=== PATIENT | male | born 1995 | race Asian ===

== ENCOUNTER 2018-01-05 13:16 | Inpatient (IN) | payer OTHER ==
[~2018-01-05] VITALS: Ht 167.6 cm; Wt 46.5 kg
[2018-01-05 14:13] LABS: HEMATOCRIT 48.3 % (41-53); HEMOGLOBIN 16.9 g/dL (13.5-17.5); LYMPHOCYTES # (AUTO) 1.4 K/uL (1.0-4.8); LYMPHOCYTES % (AUTO) 24.3 % (22.0-44.0); MEAN CORPUSCULAR VOLUME 86 fL (80-100); MONOCYTES # (AUTO) 0.4 K/uL (0.1-1.0); MONOCYTES % (AUTO) 7.9 % (2.0-9.0); NEUTROPHILS # (AUTO) 3.6 K/uL (1.8-7.7); NEUTROPHILS % (AUTO) 63.8 % (40.0-70.0); PLATELET COUNT (AUTO) 288 K/uL (150-450); RED BLOOD CELL COUNT(AUTO) 5.63 MIL/uL (4.50-5.90); RED CELL DISTRIBUTION WIDTH 12.8 % (11.5-14.5)
[2018-01-05 14:22] LABS: ANION GAP 12 mmol/L (8-16); CALCIUM, TOTAL 9.2 mg/dL (8.8-10.5); CARBON DIOXIDE 22 mmol/L (22-29); CHLORIDE 103 mmol/L (98-107); GLOMERULAR FILTR. RATE CALC > 60 mL/min (>60); GLUCOSE,RANDOM 88 mg/dL (70-110); POTASSIUM 3.7 mmol/L (3.5-5.1); SODIUM SERUM 137 mmol/L (136-145); UREA NITROGEN, BLOOD 16 mg/dL (7-18)
[2018-01-05 14:27] LABS: ALANINE AMINOTRANSFERASE 30 U/L (12-78); ALBUMIN 4.7 g/dL (3.4-5.0); ALKALINE PHOSPHATASE 77 U/L (46-116); ASPARTATE AMINOTRANSFERASE 19 U/L (15-37); BILIRUBIN,TOTAL 1.1 mg/dL (0.1-1.0)
[2018-01-05] MEDS ORDERED: HALOPERIDOL 5 MG TABLET PO PRN (16:30)
[2018-01-05] MEDS ORDERED: ZOLPIDEM TARTRATE 10 MG TABLET PO PRN (16:30)
[2018-01-05] MEDS ORDERED: LORazepam 2 MG TABLET PO PRN (16:30)
[2018-01-05 19:35] VITALS: BP 119/81
[2018-01-05] MEDS ORDERED: ACETAMINOPHEN 650 MG/20.3 ML SOLUTION UDCUP PO PRN (22:45)
[2018-01-05] MEDS ORDERED: IBUPROFEN 100 MG/5 ML SUSPENSION UDCUP PO PRN (22:45)
[2018-01-06 02:15] VITALS: BP 128/91
[2018-01-06 07:07] LABS: CHOL/HDL RATIO 3.5 (4.2-7.3); FREE T4 (FREE THYROXINE) 1.25 ng/dL (0.76-1.46); THYROID STIMULATING HORMONE 0.89 uIU/mL (0.36-3.74)
[2018-01-06] MEDS: NICOTINE 7 MG/24 HOUR PATCH TD SCH (08:22)
[2018-01-06 09:36] VITALS: BP 109/70
[2018-01-06] MEDS ORDERED: ACETAMINOPHEN 325 MG TABLET PO PRN (10:30)
[2018-01-06] MEDS ORDERED: MAGNESIUM HYDROXIDE SUSPENSION 30 ML UDCUP PO PRN (10:30)
[2018-01-06] MEDS ORDERED: PETROLATUM,WHITE 71 GM JELLY TP PRN (10:30)
[2018-01-06] MEDS ORDERED: DOCUSATE SODIUM 100 MG CAPSULE PO PRN (10:30)
[2018-01-06] MEDS ORDERED: ALBUTEROL SULFATE HFA 90 MCG/PUFF 8 GM INHALER IH PRN (10:30)
[2018-01-06] MEDS ORDERED: IBUPROFEN 400 MG TABLET PO PRN (10:30)
[2018-01-06] MEDS ORDERED: MAG HYDROX/AL HYDROX/SIMETH ES 30 ML SUSPENSION UDCUP PO PRN (10:30)
[2018-01-06 17:00] VITALS: BP 103/64
[2018-01-06] MEDS: RisperiDONE CONC 2 MG/2 ML SOLUTION ORAL.SYG PO SCH (21:18)
[2018-01-07 06:05] LABS: HEMOGLOBIN A1C 5.6 % (4.5-6.2)
[2018-01-07 06:20] LABS: THYROID STIMULATING HORMONE 1.51 uIU/mL (0.36-3.74)
[2018-01-07 08:05] VITALS: BP 99/63
[2018-01-07] MEDS: NICOTINE 7 MG/24 HOUR PATCH TD SCH (09:00)
[2018-01-07 18:26] VITALS: BP 102/62
[2018-01-07] MEDS: RisperiDONE CONC 2 MG/2 ML SOLUTION ORAL.SYG PO SCH (21:28)
[2018-01-08 08:05] VITALS: BP 116/77
[2018-01-08] MEDS: NICOTINE 7 MG/24 HOUR PATCH TD SCH (08:16)
[2018-01-08] MEDS ORDERED: RISP2 PO (10:32)
== END 2018-01-08 15:20 | disposition home or self-care (01) | DRG 881 ==
LOC: EMS 13:17 → 3EX 19:02
PROVIDERS: ADMIT Psychiatry & Neurology Psychiatry; ATTEND Psychiatry & Neurology Psychiatry
DX: F32.9 Major depressive disorder, single episode, unspecified (principal); R17 Unspecified jaundice; R45.851 Suicidal ideations; F12.10 Cannabis abuse, uncomplicated; J45.909 Unspecified asthma, uncomplicated; R00.0 Tachycardia, unspecified; Z91.018 Allergy to other foods; Z71.51 Drug abuse counseling and surveillance of drug abuser
CPT/HCPCS: 83036; 84439; 84443; 99285; G0480

== ENCOUNTER 2018-12-04 19:24 | Inpatient (IN) | payer OTHER ==
[~2018-12-04] VITALS: Ht 167.6 cm; Wt 46.3 kg
[~2018-12-04 19:24] MED LIST: RISP2 PO
[2018-12-04 20:33] LABS: BASOPHILS % (AUTO) 0.6 % (0.0-2.0); HEMATOCRIT 49.5 % (41-53); HEMOGLOBIN 16.6 g/dL (13.5-17.5); LYMPHOCYTES # (AUTO) 1.3 K/uL (1.0-4.8); LYMPHOCYTES % (AUTO) 17.4 % (22.0-44.0); MEAN CORPUSCULAR HEMOGLOBIN 29.5 pg (26.0-34.0); MEAN CORPUSCULAR HGB CONC 33.5 G/dL (31.0-37.0); MEAN CORPUSCULAR VOLUME 88 fL (80-100); MONOCYTES # (AUTO) 0.5 K/uL (0.1-1.0); MONOCYTES % (AUTO) 6.4 % (2.0-9.0); NEUTROPHILS # (AUTO) 5.4 K/uL (1.8-7.7); NEUTROPHILS % (AUTO) 74.6 % (40.0-70.0); PLATELET COUNT (AUTO) 290 K/uL (150-450); RED BLOOD CELL COUNT(AUTO) 5.61 MIL/uL (4.50-5.90); RED CELL DISTRIBUTION WIDTH 12.8 % (11.5-14.5)
[2018-12-04 20:41] LABS: ANION GAP 13 mmol/L (8-16); CALCIUM, TOTAL 9.8 mg/dL (8.8-10.5); CARBON DIOXIDE 25 mmol/L (22-29); CHLORIDE 100 mmol/L (98-107); CREATININE 0.96 mg/dL (0.60-1.30); GLOMERULAR FILTR. RATE CALC > 60 mL/min (>60); GLUCOSE,RANDOM 81 mg/dL (70-110); SODIUM SERUM 138 mmol/L (136-145); UREA NITROGEN, BLOOD 15 mg/dL (7-18)
[2018-12-04 20:46] LABS: ALANINE AMINOTRANSFERASE 17 U/L (12-78); ALBUMIN 4.9 g/dL (3.4-5.0); ALKALINE PHOSPHATASE 77 U/L (46-116); ASPARTATE AMINOTRANSFERASE 23 U/L (15-37); BILIRUBIN,TOTAL 1.9 mg/dL (0.1-1.0); TOTAL PROTEIN, SERUM 8.4 g/dL (6.4-8.2)
[2018-12-04] MEDS ORDERED: ZOLPIDEM TARTRATE 10 MG TABLET PO PRN (21:45)
[2018-12-04 22:11] LABS: AMPHET/METH SCREEN,URINE NEGATIVE (NEGATIVE); BARBITURATE SCREEN, URINE NEGATIVE (NEGATIVE); BENZODIAZEPINES SCREEN,URINE NEGATIVE (NEGATIVE); CANNABINOID SCREEN,URINE POSITIVE (NEGATIVE); COCAINE SCREEN,URINE NEGATIVE (NEGATIVE); METHADONE SCREEN, URINE NEGATIVE (NEGATIVE); OPIATE SCREEN,URINE NEGATIVE (NEGATIVE)
[2018-12-04 22:12] LABS: PHENCYCLIDINE SCREEN,URINE NEGATIVE (NEGATIVE)
[2018-12-04 22:15] LABS: HEMOGLOBIN A1C 5.4 % (4.5-6.2)
[2018-12-04 22:30] LABS: CHOL/HDL RATIO 4.3 (4.2-7.3); CHOLESTEROL 205 mg/dL (131-200); FREE T4 (FREE THYROXINE) 1.59 ng/dL (0.76-1.46); HDL CHOLESTEROL 48 mg/dL (40-60); LDL CHOL (CALC.) 146 mg/dL (0-130); THYROID STIMULATING HORMONE 1.69 uIU/mL (0.36-3.74); TRIGLYCERIDES 54 mg/dL (15-150)
[2018-12-05 01:24] VITALS: BP 111/82
[2018-12-05] MEDS ORDERED: ALBUTEROL SULFATE HFA 90 MCG/PUFF 8 GM INHALER IH PRN (06:45)
[2018-12-05] MEDS ORDERED: NICOTINE 14 MG/24 HOUR PATCH TD PRN (06:45)
[2018-12-05] MEDS ORDERED: CloNIDine HCL 0.1 MG TABLET PO PRN (06:45)
[2018-12-05] MEDS ORDERED: IBUPROFEN 400 MG TABLET PO PRN (06:45)
[2018-12-05] MEDS ORDERED: MAG HYDROX/AL HYDROX/SIMETH ES 30 ML SUSPENSION UDCUP PO PRN (06:45)
[2018-12-05] MEDS ORDERED: GuaiFENesin/D-METHORPHAN [SUGAR-FREE] 200-20MG/10 ML SYRUP UDCUP PO PRN (06:45)
[2018-12-05] MEDS ORDERED: LOPERAMIDE HCL 2 MG CAPSULE PO PRN (06:45)
[2018-12-05] MEDS ORDERED: DOCUSATE SODIUM 100 MG CAPSULE PO PRN (06:45)
[2018-12-05] MEDS ORDERED: MAGNESIUM HYDROXIDE SUSPENSION 30 ML UDCUP PO PRN (06:45)
[2018-12-05] MEDS ORDERED: ONDANSETRON HCL 4 MG TABLET PO PRN (06:45)
[2018-12-05] MEDS ORDERED: ACETAMINOPHEN 325 MG TABLET PO PRN (06:45)
[2018-12-05] MEDS ORDERED: PETROLATUM,WHITE 28 GM JELLY TP PRN (06:45)
[2018-12-05 08:21] VITALS: BP 120/74
[2018-12-05 16:08] VITALS: BP 101/74
[2018-12-05] MEDS: RisperiDONE 2 MG TABLET PO SCH (20:33)
[2018-12-05] MEDS: HALOPERIDOL 5 MG TABLET PO PRN (20:58)
[2018-12-05] MEDS: LORazepam 1 MG TABLET PO PRN (20:58)
[2018-12-06 06:18] VITALS: BP 110/65
[2018-12-06 08:14] LABS: BASOPHILS % (AUTO) 1.1 % (0.0-2.0); EOSINOPHILS % (AUTO) 8.5 % (1.0-6.0); HEMOGLOBIN 14.7 g/dL (13.5-17.5); LYMPHOCYTES # (AUTO) 1.7 K/uL (1.0-4.8); LYMPHOCYTES % (AUTO) 41.3 % (22.0-44.0); MEAN CORPUSCULAR HEMOGLOBIN 29.5 pg (26.0-34.0); MEAN CORPUSCULAR HGB CONC 33.4 G/dL (31.0-37.0); MEAN CORPUSCULAR VOLUME 88 fL (80-100); MONOCYTES # (AUTO) 0.4 K/uL (0.1-1.0); MONOCYTES % (AUTO) 8.7 % (2.0-9.0); NEUTROPHILS # (AUTO) 1.6 K/uL (1.8-7.7); NEUTROPHILS % (AUTO) 40.4 % (40.0-70.0); PLATELET COUNT (AUTO) 222 K/uL (150-450); RED BLOOD CELL COUNT(AUTO) 4.98 MIL/uL (4.50-5.90); RED CELL DISTRIBUTION WIDTH 12.6 % (11.5-14.5)
[2018-12-06 08:35] LABS: HEMOGLOBIN A1C 5.3 % (4.5-6.2)
[2018-12-06 08:43] VITALS: BP 102/73
[2018-12-06 09:08] LABS: ALANINE AMINOTRANSFERASE 15 U/L (12-78); ALBUMIN 3.9 g/dL (3.4-5.0); ALKALINE PHOSPHATASE 65 U/L (46-116); ANION GAP 6 mmol/L (8-16); ASPARTATE AMINOTRANSFERASE 17 U/L (15-37); CALCIUM, TOTAL 8.7 mg/dL (8.8-10.5); CARBON DIOXIDE 27 mmol/L (22-29); CHLORIDE 105 mmol/L (98-107); CHOLESTEROL 170 mg/dL (131-200); CREATININE 0.88 mg/dL (0.60-1.30); GLOMERULAR FILTR. RATE CALC > 60 mL/min (>60); GLUCOSE,RANDOM 82 mg/dL (70-110); HDL CHOLESTEROL 43 mg/dL (40-60); LDL CHOL (CALC.) 118 mg/dL (0-130); POTASSIUM 4.1 mmol/L (3.5-5.1); SODIUM SERUM 138 mmol/L (136-145); THYROID STIMULATING HORMONE 1.82 uIU/mL (0.36-3.74); TOTAL PROTEIN, SERUM 6.9 g/dL (6.4-8.2); TRIGLYCERIDES 45 mg/dL (15-150)
[2018-12-06 09:37] LABS: UREA NITROGEN, BLOOD 23 mg/dL (7-18)
[2018-12-06] MEDS ORDERED: SERTRALINE HCL 50 MG TABLET PO SCH (13:45)
[2018-12-06] MEDS ORDERED: RisperiDONE 1 MG TABLET PO SCH (13:45)
[2018-12-06] MEDS: VENLAFAXINE HCL 75 MG ER CAPSULE PO SCH (14:27)
[2018-12-06 16:00] VITALS: BP 109/66
[2018-12-06] MEDS: HALOPERIDOL 5 MG TABLET PO PRN (16:24)
[2018-12-06] MEDS: LORazepam 1 MG TABLET PO PRN (16:24)
[2018-12-06] MEDS: RisperiDONE 2 MG TABLET PO SCH (20:36)
[2018-12-07 05:46] VITALS: BP 108/71
[2018-12-07 08:34] VITALS: BP 106/68
[2018-12-07] MEDS: VENLAFAXINE HCL 75 MG ER CAPSULE PO SCH (09:09)
[2018-12-07] MEDS: LORazepam 1 MG TABLET PO PRN (09:09)
[2018-12-07] MEDS: HALOPERIDOL 5 MG TABLET PO PRN (09:09)
[2018-12-07 16:00] VITALS: BP 105/64
[2018-12-07] MEDS: RisperiDONE 2 MG TABLET PO SCH (21:47)
[2018-12-08 02:59] VITALS: BP 106/62
[2018-12-08 08:09] VITALS: BP 110/66
[2018-12-08] MEDS: VENLAFAXINE HCL 150 MG ER CAPSULE PO SCH (08:39)
[2018-12-08 16:00] VITALS: BP 125/68
[2018-12-08] MEDS: HALOPERIDOL 5 MG TABLET PO PRN (16:41)
[2018-12-08] MEDS: LORazepam 1 MG TABLET PO PRN (16:41)
[2018-12-08] MEDS: RisperiDONE 2 MG TABLET PO SCH (20:30)
[2018-12-09 06:09] VITALS: BP 109/68
[2018-12-09 08:03] VITALS: BP 125/69
[2018-12-09] MEDS: VENLAFAXINE HCL 150 MG ER CAPSULE PO SCH (08:50)
[2018-12-09] MEDS: HALOPERIDOL 5 MG TABLET PO PRN (08:51)
[2018-12-09] MEDS: LORazepam 1 MG TABLET PO PRN (08:51)
[2018-12-09] MEDS ORDERED: VENL-68 PO (12:25)
[2018-12-09] MEDS ORDERED: RISP2 PO (12:25)
[2018-12-09 16:00] VITALS: BP 128/82
== END 2018-12-09 17:20 | disposition home or self-care (01) | DRG 885 ==
LOC: EMS 19:26 → B3A 23:25
PROVIDERS: ADMIT Psychiatry & Neurology Psychiatry; ATTEND Psychiatry & Neurology Psychiatry
DX: F20.0 Paranoid schizophrenia (principal); F10.231 Alcohol dependence with withdrawal delirium; J45.909 Unspecified asthma, uncomplicated; Z59.9 Problem related to housing and economic circumstances, unspecified; G44.209 Tension-type headache, unspecified, not intractable; F12.90 Cannabis use, unspecified, uncomplicated; E78.5 Hyperlipidemia, unspecified; Z83.3 Family history of diabetes mellitus
CPT/HCPCS: 83036; 84439; 84443; G0480